=== PATIENT | female | born 2000 | race Caucasian/White ===

== ENCOUNTER 2018-05-28 20:47 | Emergency (ER) | payer OTHER ==
[~2018-05-28] VITALS: Ht 170.2 cm; Wt 83.9 kg
[2018-05-28 21:08] VITALS: Ht 170.2 cm; Wt 83.9 kg
[2018-05-28 22:34] LABS: BASOPHIL % 0.5 % (0-2); PLATELET COUNT 253 x10^3mcL (130-400); RED CELL DISTRIBUTION WIDTH 12.8 % (11.5-14.5)
[2018-05-28 23:20] VITALS: BP 120/77
== END 2018-05-28 23:20 | disposition home or self-care (01) ==
LOC: ED 20:47
PROVIDERS: Emergency Medicine
DX: N94.6 Dysmenorrhea, unspecified (principal); N92.0 Excessive and frequent menstruation with regular cycle
CPT/HCPCS: 36415